=== PATIENT | female | born 1975 | race Caucasian/White ===

== ENCOUNTER 2017-01-25 23:57 | Emergency (ER) | payer BC ==
[~2017-01-25] VITALS: Ht 170.2 cm; Wt 59.1 kg
[2017-01-26 00:11] VITALS: BP 106/86; TEMP 97.3
[2017-01-26] MEDS ORDERED: LEXAPRO 10MG10 MG PO (00:13)
[2017-01-26] MEDS ORDERED: FLEXERIL 1010 MG/TAB PO (00:26)
[2017-01-26 01:06] LABS: PH 6 (5-8); URINE APPEARANCE Hazy; URINE BACTERIA Rare /hpf; URINE BILIRUBIN Negative (NEGATIVE); URINE BLOOD Negative (NEGATIVE); URINE COLOR Yellow; URINE GLUCOSE Negative (NEGATIVE); URINE KETONE Negative (NEGATIVE); URINE UROBILINOGEN Negative (NEGATIVE)
[2017-01-26 02:52] VITALS: PULSE 74
== END 2017-01-26 02:20 | disposition home or self-care (01) ==
LOC: COL.ER 23:57
PROVIDERS: Nurse Practitioner
DX: M54.5 Low back pain (principal)
CPT/HCPCS: J1170; J1885

== ENCOUNTER → 2017-01-27 | Outpatient (CLI) | payer BC ==
[~2017-01-27] MED LIST: FLEXERIL 1010 MG/TAB PO; LEXAPRO 10MG10 MG PO
== END ==
LOC: COL.RAD 14:19
DX: M51.06 Intervertebral disc disorders with myelopathy, lumbar region (principal); M54.41 Lumbago with sciatica, right side